=== PATIENT | male | born 1975 ===

== ENCOUNTER 2023-02-12 06:59 | Day surgery (SDC) | payer OTHER ==
[~2023-02-12] VITALS: Ht 175.3 cm; Wt 74.8 kg
[~2023-02-12 06:59] MED LIST: COZAAR25 MG PO; TOPROL XL25 M1 PO
[2023-02-12] MEDS ORDERED: PERCOCET 5-3251 EACH PO (12:25)
[2023-02-12] MEDS ORDERED: NEURONTIN300 MG PO (12:25)
[2023-02-12] MEDS ORDERED: POLY119PG PO (12:27)
== END 2023-02-12 15:45 | disposition home or self-care (01) ==
LOC: CIR.AMB 06:59
PROVIDERS: ATTEND Surgery
DX: K40.91 Unilateral inguinal hernia, without obstruction or gangrene, recurrent (principal); Z20.822 Contact with and (suspected) exposure to COVID-19
CPT/HCPCS: 49651; C1781